=== PATIENT | female | born 1955 ===

== ENCOUNTER 2024-03-15 15:30 | Inpatient (IN) | payer MEDICARE ==
[~2024-03-15] VITALS: Ht 162.6 cm; Wt 99.5 kg
[~2024-03-15 15:30] MED LIST: AMOXICILLIN 8751 TAB PO; ATACAND32 MG PO; FLAGYL500 MG PO; NYSTATIN POWDER15 GM TOP; ROXICODONE 55 MG/TAB PO
[2024-03-15] MEDS ORDERED: metroNIDAZOLE 100 ML IV SCH (16:45)
[2024-03-15] MEDS ORDERED: Ondansetron 4 MG/2 ML VIAL IV PRN (16:45)
[2024-03-15] MEDS ORDERED: LR 1,000 ML IV SCH (16:45)
[2024-03-15] MEDS ORDERED: HYDROmorphone 0.5 MG/0.5 ML SYRINGE IV PRN (16:45)
[2024-03-15] MEDS ORDERED: oxyCODONE/Acetaminophen 5-325 MG TAB PO PRN (16:45)
[2024-03-15] MEDS ORDERED: NS 1,000 ML IV ONE (17:00)
--- NOTE | 2024-03-15 17:15 | NUR ---
Pt. arrived to the floor. Pt. is A&OX3, assessment complete. INT to Rt. ac patent. Pt. denies pain at this time. Call light within reach.
[2024-03-15 17:36] VITALS: BP 136/87; PULSE 107; TEMP 98.2
[2024-03-15 19:45] VITALS: BP 115/80; PULSE 93; TEMP 99
[2024-03-15 19:53] VITALS: BP_SYST 115
[2024-03-15 23:02] VITALS: BP 129/85; PULSE 91; TEMP 98.1
[2024-03-15 23:41] VITALS: BP_SYST 129
--- NOTE | 2024-03-15 23:47 | NUR ---
patient lying in bed, alert and oriented x4. horacio chest pain and shortness of breath. reports cramping pain in abd, med given per request. IV in RAC is patent, site is CDI. generalized bruising on extremities noted. pt has no further needs, questions or concerns at this time. ambulating with steady gait. call light within reach. will continue to monitor.
[2024-03-16] VITALS (11 sets, daily range): BP systolic 120–140; BP diastolic 75–82; PULSE 77–89; TEMP 97.6–98.2
--- NOTE | 2024-03-16 09:09 | NUR ---
SW reviewed chart for patient that is a 30 day readmission. SW met with patient to complete initial assessment for discharge planning. Patient verified that she lives in [place] with her /DPOA Anup ([phone]). She sees Dr. Alicia as her PCP and uses [facility]. Patient denies using any DME. She does not have any HH or other home services and does not anticipate the need for such at discharge. Plan is for patient to return home. Discharge plan: Home
--- NOTE | 2024-03-16 09:58 | NUR ---
D: Systems Librarian stopped by room on rounds. A: Pt was resting and content. Pt has no needs right now. P: Systems Librarian informed pt that if she needed anything to let her nurse know. Systems Librarian will follow up as needed.
--- NOTE | 2024-03-16 11:08 | NUR ---
SHIFT ASSESSMENT COMPLETE. VSS. PATIENT RESTING IN BED. ALL MORNING MEDS GIVEN ORDERED. PATIENT COMPLIANS OF DULL CONSTANT PAIN TO RIGHT LOWER ABD. PAIN MEDS GIVEN ORDERED. PATIENT HAS NO OTHER COMPLAINTS OR REQUEST AT THI TIME. CALL LIGHT IN REACH
[2024-03-16] MEDS ORDERED: hydrALAZINE 20 MG/ML 1 ML VIAL IV PRN (15:45)
[2024-03-16] MEDS ORDERED: Bisacodyl 5 MG TAB PO SCH (17:00)
[2024-03-16] MEDS ORDERED: Polyethylene Glycol 3350 119 GM BOTTLE PO SCH (17:00)
--- NOTE | 2024-03-16 19:38 | NUR ---
SHIFT ASSESSMENT COMPLETED AT THIS TIME. PT A&OX4. PT REPORTS NO PAIN BUT DISCOMFORT AND FEELINGS OF BLOATING IN THE ABDOMEN. PT DENIES NAUSEA AND SOB. PT REPORTS HAVING A FEW SMALL BOWEL MOVEMENTS TODAY BUT NOTHING SIGNIFICANT. NO SCHEDULED EVENING MEDICATIONS ORDERED TO ADMMINISTER AT THIS TIME. CALL LIGHT WITHIN REACH. NO FURTHER NEEDS AT THIS TIME.
[2024-03-17] VITALS (18 sets, daily range): BP systolic 118–154; BP diastolic 62–84; PULSE 76–88; TEMP 98–98.7
[2024-03-17] MEDS ORDERED: LR 1,000 ML IV SCH ×3 (05:00→17:30)
[2024-03-17 06:43] LABS: ALBUMIN 2.2 g/dL (3.4-4.8); BILIRUBIN,TOTAL 0.4 mg/dL (0.2-1.2); CALCIUM 8.8 mg/dL (8.4-10.2); CREATININE, serum 0.61 mg/dL (0.57-1.11); POTASSIUM 3.8 mEq/L (3.5-4.5)
--- NOTE | 2024-03-17 07:35 | NUR ---
PT ALERT AND RESTING IN BED. HEAD TO TOE ASSESSMENT COMPLETE. PT REQUESTED PRN PERCOCET. GIVEN WITHIN SIPS OF WATER. STATED PAIN IS 3/10 IN HER ABDOMEN AND DESCRIBED IT "MILD PAIN." PT INDEPENDENT IN ROOM. CALL LIGHT WITHIN REACH. NO FURTHER NEEDS.
[2024-03-17 08:02] LABS: BASO % 0.4 % (0.0-2.0); EOS # 0.2 K/mm3 (0.0-0.7); EOS % 1.8 % (0.0-4.0); GRAN % 70.3 % (42.2-75.2); HEMOGLOBIN 10.4 g/dl (12.5-16.0); LYMPH # 1.4 K/mm3 (1.2-3.4); LYMPH % 14.4 % (20.0-51.0); MEAN CELL VOLUME 77 fl (80.0-100.0); MEAN CORPUSCULAR HEMOGLOBIN 25 pg (27-31); MEAN CORPUSCULAR HGB CONC 33 g/dl (33.0-37.0); MEAN PLATELET VOLUME 9.5 fl (7.4-10.4); MONO # 1.3 K/mm3 (0.1-0.6); MONO % 12.8 % (1.7-9.3); PLATELET COUNT 404 K/mm3 (130-400); RED BLOOD COUNT 4.13 M/mm3 (4.10-5.30); REDCELL DISTRIBUTION WIDTH-CV 14.2 % (11.5-14.5)
[2024-03-17 08:03] LABS: HEMATOCRIT 31.7 % (37.0-47.0)
[2024-03-17] MEDS ORDERED: NS 10 ML IV ONE (13:58)
[2024-03-17] MEDS ORDERED: Lidocaine PF 2% (20 MG/ML) 5 ML VIAL ONE ×2 (13:58→15:35)
[2024-03-17] MEDS ORDERED: dexAMETHasone 10 MG/ML VIAL ONE ×2 (14:00→16:16)
[2024-03-17] MEDS ORDERED: Midazolam 2 MG/2 ML VIAL ONE (14:02)
[2024-03-17] MEDS ORDERED: fentaNYL 50 MCG/ML 2 ML VIAL ONE (14:02)
[2024-03-17] MEDS ORDERED: Rocuronium 50 MG/5 ML Multi-Dose VIAL ONE (14:03)
--- NOTE | 2024-03-17 15:08 | NUR ---
pt off floor for procedure
[2024-03-17] MEDS ORDERED: Ondansetron 4 MG/2 ML VIAL ONE (16:16)
[2024-03-17] MEDS ORDERED: fentaNYL 50 MCG/ML 1 ML SYRINGE/VIAL [PACU/SDC ONLY] IV PRN (16:45)
[2024-03-17] MEDS ORDERED: Ondansetron 4 MG/2 ML VIAL IV PRN ×2 (16:45→17:30)
[2024-03-17] MEDS ORDERED: HYDROmorphone 1 MG/1 ML SYRINGE [PACU/SDC ONLY] IV PRN (16:45)
[2024-03-17] MEDS ORDERED: droPERidol 2.5 MG/ML 2 ML VIAL IV PRN (16:45)
[2024-03-17] MEDS ORDERED: Meperidine 50 MG/ML 1 ML VIAL IV PRN (16:45)
[2024-03-17] MEDS ORDERED: Morphine 2 MG/1 ML VIAL [PACU/SDC ONLY] IV PRN (16:45)
[2024-03-17] MEDS ORDERED: Neostigmine 1 MG/ML 10 ML Multi-Dose Vial ONE (16:54)
[2024-03-17] MEDS ORDERED: Glycopyrrolate 0.2 MG/ML 1 ML VIAL ONE (16:54)
[2024-03-17] MEDS ORDERED: Topical Skin Adhesive 1 EACH (1 ML) TOP ONE (17:00)
[2024-03-17] MEDS ORDERED: oxyCODONE 5 MG TAB PO PRN (17:30)
[2024-03-17] MEDS ORDERED: Naloxone 0.4 MG/ML VIAL IV PRN (17:30)
[2024-03-17] MEDS ORDERED: HYDROmorphone 0.5 MG/0.5 ML SYRINGE IV PRN (17:30)
[2024-03-17] MEDS ORDERED: Acetaminophen 500 MG TAB PO SCH (18:25)
--- NOTE | 2024-03-17 20:00 | NUR ---
Pt. resting in bed w/ family at bedside. Pt. appears mildly drowsy. She and her family inquiring about pt's procedure, diet, and plan of care. RN addressed questions. Pt. and family expressed understanding. Pt. requesting broth at this time. Shift assessment complete. Respirations are shallow, but even and unlabored. Abdominal incision sites are CDI. JONH drain to bulb suction w/ small amounts of bloody drainage. Bowel sounds audible in all quadrants. Indwelling catheter to dependent drainage and securement device in place- draining clear yellow urine. No further outstanding findings. Pt. denies pain at this time. Call light in reach.
[2024-03-17] MEDS ORDERED: Celecoxib 200 MG CAP PO SCH (21:00)
--- NOTE | 2024-03-17 21:30 | NUR ---
Scheduled meds administered per MAR. Pt. continues to deny pain.
--- NOTE | 2024-03-17 21:33 | NUR ---
Patient refused HS Celebrex-has not tolerated much PO since arriving from PACU. States she would like to start tomorrow AM when she eats more.
[2024-03-18] VITALS (13 sets, daily range): BP systolic 98–149; BP diastolic 63–85; PULSE 69–79; TEMP 98–98.3
--- NOTE | 2024-03-18 | NUR ---
Patient up to do oral care and attempt BM. Ambulated to bathroom with one assist. During trip IV to left AC was pulled out-cath intact. New IV started to right forearm-20g- by this nurse x1 attempt. C/O pain to right lower quadrant described as intermittent sharp pains. Has not tolerated much PO yet-dilaudid given per dr order. JONH drain with red output. Patient is worried that when she got up she "tore a stitch" and states she wont get up again. Education given on importance of ambulation to aid in recovery and gas pains. Verbalizes understanding. Call light in reach. Will monitor.
--- NOTE | 2024-03-18 | NUR ---
PCT reported pt's IV pump was beeping. Upon assessment, pt's IV has bloody appearing drainage around insertion site. Unable to flush IV. IV discontinued w/ catheter tip intact. RN inserted new IV to R forearm.
--- NOTE | 2024-03-18 03:30 | NUR ---
Pt. c/o pain rated 7/10. Pt. had difficulty rating and describing pain. She was very unsure whether she wanted her scheduled tylenol. Pt. did end up taking tylenol while also requesting something stronger. Administered PRN roxicodone per OCT. Will continue to monitor.
--- NOTE | 2024-03-18 04:29 | NUR ---
Patient tolerated clear liquids without N/V. Requesting diet to be advanced to fulls. Order placed. Will monitor.
--- NOTE | 2024-03-18 05:25 | NUR ---
Pt. reports pain is subsiding.
--- NOTE | 2024-03-18 05:26 | NUR ---
Pt currently resting in bed. Last night she struggled w/ pain management towards the latter half of the night. She has a new IV site to the R forearm. She seems a little anxious about ambulating since her last attempt. Pt. has been educated about the importance of early ambulation, pain management, and expected pain. Pt. tolerated clear liquid diet well and has been advanced to full liquids. Indwelling catheter still draining clear yellow urine. No requests or complaints at this time.
[2024-03-18 06:39] LABS: GRAN # 7.6 K/mm3 (1.4-6.5); GRAN % 89.6 % (42.2-75.2); HEMOGLOBIN 10.9 g/dl (12.5-16.0); LYMPH # 0.7 K/mm3 (1.2-3.4); LYMPH % 8.4 % (20.0-51.0); MEAN CELL VOLUME 77 fl (80.0-100.0); MEAN CORPUSCULAR HEMOGLOBIN 25 pg (27-31); MEAN CORPUSCULAR HGB CONC 32 g/dl (33.0-37.0); MEAN PLATELET VOLUME 9.6 fl (7.4-10.4); MONO # 0.1 K/mm3 (0.1-0.6); MONO % 1.5 % (1.7-9.3); PLATELET COUNT 405 K/mm3 (130-400); RED BLOOD COUNT 4.38 M/mm3 (4.10-5.30); REDCELL DISTRIBUTION WIDTH-CV 14.2 % (11.5-14.5)
[2024-03-18 06:47] LABS: HEMATOCRIT 33.9 % (37.0-47.0)
[2024-03-18 07:14] LABS: CALCIUM 9.1 mg/dL (8.4-10.2); CREATININE, serum 0.64 mg/dL (0.57-1.11); MAGNESIUM 1.7 mg/dL (1.6-2.6); PHOSPHOROUS 3.4 mg/dL (2.3-4.7); POTASSIUM 4.5 mEq/L (3.5-4.5)
--- NOTE | 2024-03-18 08:21 | NUR ---
PT RESTING IN BED UPON ENTERING ROOM. MEDS GIVEN PER ORDER. HEAD TO TOE ASSESSMENT COMPETE. 2 LAP SITES CLEAN AND EDGES WELL APPROXIMATED. JONH DRAIN OUTPUT SMALL AMOUNTS OF BLOOD. RATED PAIN 5/10 AND DESCRIBED IT "SHARP" LOCATED NEAR HER DRAIN SITE. PRN OXYCODONE GIVEN. DENIES FURTHER NEEDS. CALL LIGHT WITHIN REACH. NO FURTHER NEEDS.
[2024-03-18] MEDS ORDERED: CANDESARTAN 32 MG PO SCH (09:00)
[2024-03-18] MEDS ORDERED: SUBS TO LOSARTAN PO SCH (09:00)
[2024-03-18] MEDS ORDERED: Losartan 50 MG TAB PO SCH (09:00)
--- NOTE | 2024-03-18 09:30 | NUR ---
attempted to have pt sit on the side of bed for breakfast. pt reports increased pain with catheter and wanting to lay back in bed. pt denies wanting to have catheter removed. will attempt to have breakfast while in bed. no abdominal pain reported.
--- NOTE | 2024-03-18 13:02 | NUR ---
SW attended interdisciplinary rounding and was informed pt is on antibiotics and awaiting cultures to come back. Dr. Costa ordered PT for pt. Discharge Plan: home, PT pending
--- NOTE | 2024-03-18 14:22 | NUR ---
PT RATED PAIN 10/10 LOCATED IN HER ABDOMEN. GIVEN PRN OXYCODONE. REQUESTED THAT WE DO NOT REMOVE HER VALDES AT THIS TIME BECAUSE SHE DOES NOT THINK SHE WILL BE ABLE TO GET UP TO THE BATHROOM. WILL REASSESS IF PAIN MEDICATION HELPS. NO FURTHER NEEDS. CALL LIGHT WITHIN REACH.
--- NOTE | 2024-03-18 15:32 | NUR ---
PT STATED PAIN WAS TOLERABLE ENOUGH TO TAKE VALDES OUT. VALDES CATHETER REMOVED. 10 CC REMOVED FROM BALLOON. PT TOLERATED WELL. GOT UP TO GO TO THE BATHROOM. PT HAD SOME TROUBLE USING CORE MUSCLES AND HAD PAIN WITH MOVEMENT. GAIT SOMEWHAT UNSTEADY. CALL LIGHT WITHIN REACH. NO FURTHER NEEDS.
--- NOTE | 2024-03-18 21:00 | NUR ---
Pt. resting in bed upon entry. Pt. refused scheduled celebrex d/t concerns it might upset her stomach. Pt. denies pain at this time. Shift assessment complete. Bowel sounds are audible in all quadrants. Pt. endorses passing flatus and denies N/V. However, pt. states she has not had BM since her procedure. No other outstanding findings at this time. Pt. still expressing concerns about pain w/ ambulation. She is also reluctant to use incentive spirometer, as she fears it is causing more gas pain. Education provided regarding importance of ambulation and incentive spirometer use. Pt. expresses understanding.
--- NOTE | 2024-03-18 22:40 | NUR ---
Assisted pt. from restroom back to bed. Gait was steady but hesitant. Pt. c/o discomfort r/t acid reflux. Hospitalist, RONDA Caldera, notified. New orders received.
[2024-03-19] VITALS (11 sets, daily range): BP systolic 98–147; BP diastolic 69–87; PULSE 69–80; TEMP 97.4–98.5
--- NOTE | 2024-03-19 02:17 | NUR ---
Pt. c/o persisting discomfort r/t acid reflux. Hospitalist, RONDA Caldera, notified. New orders received.
[2024-03-19] MEDS ORDERED: Mag/Al Hydrox/Simeth Susp 30 ML CUP PO ONE (02:30)
--- NOTE | 2024-03-19 06:01 | NUR ---
Pt. struggled w/ feelings of discomfort through the night. She c/o abdominal pain and discomfort s/t acid reflux during the night. Pain managed w/ PRN Roxicodone, acid reflux managed w/ GI cocktail and protonix have been initiated. Pt. was ambulating to the restroom w/ x1 assist at the beginning of the shift but has advanced to stand by assist this morning. Pt. is voiding and passing flatus but still denies BM. Pt. is drinking some fluids, but IV fluids still infusing. Appetite is still poor. JONH drain to RLQ has had more output this evening than during the day or the previous night. Drain is to bulb suction draining moderate amounts of blood-tinged drainage. Pt. resting in bed w/ eyes closed at this time; respirations even and unlabored.
[2024-03-19 07:12] LABS: BASO % 0.3 % (0.0-2.0); EOS % 0.4 % (0.0-4.0); GRAN # 5.9 K/mm3 (1.4-6.5); HEMATOCRIT 38.7 % (37.0-47.0); HEMOGLOBIN 12.3 g/dl (12.5-16.0); LYMPH # 2.4 K/mm3 (1.2-3.4); LYMPH % 26.1 % (20.0-51.0); MEAN CELL VOLUME 78 fl (80.0-100.0); MEAN CORPUSCULAR HEMOGLOBIN 25 pg (27-31); MEAN CORPUSCULAR HGB CONC 32 g/dl (33.0-37.0); MEAN PLATELET VOLUME 10.3 fl (7.4-10.4); MONO # 0.8 K/mm3 (0.1-0.6); MONO % 8.5 % (1.7-9.3); RED BLOOD COUNT 4.96 M/mm3 (4.10-5.30); REDCELL DISTRIBUTION WIDTH-CV 14.6 % (11.5-14.5)
[2024-03-19 07:19] LABS: PLATELET COUNT 293 K/mm3 (130-400)
[2024-03-19 07:30] LABS: CALCIUM 8.9 mg/dL (8.4-10.2); CREATININE, serum 0.69 mg/dL (0.57-1.11); MAGNESIUM 1.7 mg/dL (1.6-2.6); POTASSIUM 3.5 mEq/L (3.5-4.5)
--- NOTE | 2024-03-19 08:00 | NUR ---
Pt doing okay this morning. She reports that her pain is tolerable, rating it 3/10 at this time. JONH drain to bulb suction. Pt reports that she is not very hungery at this time. No other needs
--- NOTE | 2024-03-19 09:20 | NUR ---
Pt continues to rest in bed. Discussed activity with her and encouraged her to sit up in the chair for meals and to try and take a short walk in between meals. PT did mention that her daughter would be here this morning to help her shower. Pt rating her pain 2/10 at this time. Dicussed her getting up and walking to the chair since her pain was tolerable. Pt was hesitant with this but did end up getting up. Call light within reach, pt is getting ready to order some breakfast
[2024-03-19] MEDS ORDERED: Magnesium Oxide 400 MG TAB PO SCH (10:01)
--- NOTE | 2024-03-19 11:40 | NUR ---
Pt has been up with therapy and did walk in the halls. Pts daughter here and did assist her with getting a shower. Drain covered to keep dry. Linens changed
--- NOTE | 2024-03-19 13:22 | NUR ---
JUAN met with patient and daughter to discuss discharge needs. Patient stating she worked well with PT this morning. Daughter stating patient could benefit from having a walker for discharge. DME order placed on front of chart for attending signature. Patient requested it be sent to [facility] [place]. Patient and daughter deny need for HH services at this time and open to discussing with PCP at follow up if they feel patient needs HH. Patient plans to return home with family assistance. Discharge plan: Home
--- NOTE | 2024-03-19 16:00 | NUR ---
Pt continues to progress. Pt has minimal complaints of pain but does not appear to have much energy/motivation. Continue to encourage pt to sit up in the chair for meals and to walk inbetween. Pts daughter has remained with her today.
--- NOTE | 2024-03-19 18:02 | NUR ---
Pt has done well today. Still slow at getting up/ambulating. Pain has been well controlled and not a big complaints today. Pts spouse present at bedside at this time. Pt has ordered her dinner. Call light within reach
--- NOTE | 2024-03-19 18:59 | NUR ---
[facility] WITH NO ACUTE DISTRESS NOTED. PATIENT ON ROOM AIR. FLAGYL INFUSING INTO LEFT AC WITH SOME IV PUMP BEEPING NOTED. JONH DRAIN INTACT AND DRAINING SMALL AMOUNT OF SEROSANGUINEOUS DRAINAGE NOTED. BEDSIDE SHIFT REPORT COMPLETED WITH BUCKY AT THIS TIME. PATIENT DENIES ANY NEEDS. BED IN LOW POSITION WITH WHEELS LOCKED WITH RAILS UP X3 AND CALL LIGHT WITHIN REACH.
--- NOTE | 2024-03-19 19:55 | NUR ---
PATIENT RESTING IN BED WITH TV ON WITH AT BEDSIDE WITH NO ACUTE DISTRESS NOTED. PATIENT ON ROOM AIR. IV PUMP BEEPING. FLAGYL RESTARTED. FLAGYL INFUSING WITH NO COMPLICATIONS NOTED. JONH DRAIN INTACT TO BULB SUCTION. ASSESSMENT COMPLETED AT THIS TIME. PATIENT TOLERATED WELL. PATIENT DENIES ANY NEEDS OTHER THAN THE IV PUMP TO STOP BEEPING. PILLOW PLACED UNDER LEFT ARM. BED IN LOW POSITION WITH WHEELS LOCKED WITH RAILS UP X3 AND CALL LIGHT WITHIN REACH.
--- NOTE | 2024-03-19 21:12 | NUR ---
PATIENT RESTING IN BED AFTER AMBULATING TO BATHROOM. PATIENT STATED "THAT WAS THE FIRST BOWEL MOVEMENT I HAVE HAD SINCE SURGERY." MEDICATION ADMINISTRATION COMPLETED AT THIS TIME. PATIENT TOLERATED WELL. PATIENT REQUESTED CUP OF ICE AND WATER WHICH WAS GIVEN. PATIENT DENIES ANY OTHER NEEDS. BED IN LOW POSITION WITH WHEELS LOCKED WITH RAILS UP X3 AND CALL LIGHT WITHIN REACH.
[2024-03-20] VITALS (12 sets, daily range): BP systolic 131–158; BP diastolic 75–95; PULSE 69–82; TEMP 97.8–98.4
[2024-03-20 06:34] LABS: BASO % 0.5 % (0.0-2.0); EOS # 0.3 K/mm3 (0.0-0.7); EOS % 3.6 % (0.0-4.0); GRAN # 4.8 K/mm3 (1.4-6.5); HEMOGLOBIN 10.9 g/dl (12.5-16.0); LYMPH # 1.9 K/mm3 (1.2-3.4); LYMPH % 24.6 % (20.0-51.0); MEAN CELL VOLUME 77 fl (80.0-100.0); MEAN CORPUSCULAR HEMOGLOBIN 25 pg (27-31); MEAN CORPUSCULAR HGB CONC 32 g/dl (33.0-37.0); MEAN PLATELET VOLUME 9.6 fl (7.4-10.4); MONO # 0.7 K/mm3 (0.1-0.6); MONO % 8.9 % (1.7-9.3); RED BLOOD COUNT 4.42 M/mm3 (4.10-5.30); REDCELL DISTRIBUTION WIDTH-CV 14.4 % (11.5-14.5)
[2024-03-20 06:46] LABS: HEMATOCRIT 34.2 % (37.0-47.0)
[2024-03-20 06:48] LABS: PLATELET COUNT 409 K/mm3 (130-400)
--- NOTE | 2024-03-20 09:27 | NUR ---
Therapy in working with pt at this time. Pt is up walking in the [place], using a walker.
[2024-03-20] MEDS ORDERED: Magnesium Sulfate 4% 50 ML IV ONE (10:45)
--- NOTE | 2024-03-20 12:30 | NUR ---
Pts IV infiltrated to her right forearm. Notified Dr Costa as pt has had several IVs in the last 24 hours. Ok to leave IV out, awaiting new orders.
[2024-03-20] MEDS ORDERED: Amoxicillin/Clavulanate K+ 875/125 MG TAB PO SCH (17:00)
--- NOTE | 2024-03-20 20:00 | NUR ---
PATIENT IS A&O, AT BEDSIDE. PATIENT DOES EXHIBIT HIGH ANXIETY TRAITS, AND WAS REPORTEDLY BY DAY SHIFT THAT PATIENT FREQUENTLY CRIES OR GETS EMOTIONAL. VSS. PATIENT REPORTS MILD ABD DISCOMFORT BUT STATES SHE WOULD LIKE PAIN MEDS CLOSER TO BEDTIME AND AFTER HER LEAVES. ABD IS ROUND AND WITH POSITIVE BOWL SOUNDS. NOTED SMALL AMOUNTS OF DRAINAGE AT JONH DRAIN SITE WITH MOD AMOUNTS OF SEROSANG OUTPUT. NO C/O N/V. NO IV SITE. HS MEDS GIVEN. ON PO ANTIBIOTICS. HEAD TO TOE ASSESSMENT COMPLETE. INDEPENDENT IN ROOM. CALL LIGHT IN REACH. SCD'S CURRENTLY OFF.
[2024-03-20] MEDS ORDERED: metroNIDAZOLE 250 MG TAB PO SCH (21:00)
[2024-03-21] VITALS (7 sets, daily range): BP systolic 132–147; BP diastolic 84–86; PULSE 74–77; TEMP 97.8–98.4
[2024-03-21 06:23] LABS: BASO % 0.2 % (0.0-2.0); EOS # 0.5 K/mm3 (0.0-0.7); EOS % 5.1 % (0.0-4.0); GRAN # 7.6 K/mm3 (1.4-6.5); GRAN % 73.1 % (42.2-75.2); HEMOGLOBIN 11.4 g/dl (12.5-16.0); LYMPH # 1.4 K/mm3 (1.2-3.4); LYMPH % 13.6 % (20.0-51.0); MEAN CELL VOLUME 77 fl (80.0-100.0); MEAN CORPUSCULAR HEMOGLOBIN 25 pg (27-31); MEAN CORPUSCULAR HGB CONC 33 g/dl (33.0-37.0); MEAN PLATELET VOLUME 9.3 fl (7.4-10.4); MONO # 0.8 K/mm3 (0.1-0.6); MONO % 7.6 % (1.7-9.3); PLATELET COUNT 384 K/mm3 (130-400); RED BLOOD COUNT 4.55 M/mm3 (4.10-5.30); REDCELL DISTRIBUTION WIDTH-CV 14.5 % (11.5-14.5)
[2024-03-21 06:52] LABS: CALCIUM 8.7 mg/dL (8.4-10.2); CREATININE, serum 0.63 mg/dL (0.57-1.11); MAGNESIUM 1.9 mg/dL (1.6-2.6); POTASSIUM 3.6 mEq/L (3.5-4.5)
[2024-03-21] MEDS ORDERED: MAG-OX 400400 MG/TAB PO (08:23)
--- NOTE | 2024-03-21 09:32 | NUR ---
SW notified by attending that patient is stable for discharge today. Attending discussed HH with patient. SW met with patient to present [email or web address] list of HH providers. Patient chose [facility] - referral faxed. JUAN faxed DME order for [facility] per patient's request to [facility]. Discharge plan: Home with HH
--- NOTE | 2024-03-21 09:47 | NUR ---
Patient up ambulating halls with therapy. She has been indepedent in her room this am. Up to sink for hygiene. She was in the bathroom and reports positive Bm. Tolerated breakfast, denies nausea. Rlq pain treated with tyelnol, not yet wanting to take anything stronger. JONH drain to compression. Will monitor
--- NOTE | 2024-03-21 13:54 | NUR ---
Patient ready for discharge home. All discharge education reviewed. Questions answered. Patient able to demonstrate [place] drain drainage. She is aware of the importance of recording output to take to follow up appt. Patient aware of follow up appt. scheduled. Medication list reviewed, importance of completing antibioitc coarse. Pain medication list reviewed. Cyber Forensics Analyst rounding to again reviewed low fiber diet. Patient to be wheeled out with all belongings
== END 2024-03-21 14:39 | disposition home health service (06) | DRG 345 ==
LOC: SURG 15:30
PROVIDERS: Internal Medicine; ADMIT Surgery
PROC: 0D9N40Z Drainage of Sigmoid Colon with Drainage Device, Percutaneous Endoscopic Approach (ICD-10-PCS; principal; 2024-03-17 16:15)
DX: K57.20 Diverticulitis of large intestine with perforation and abscess without bleeding (principal); M46.28 Osteomyelitis of vertebra, sacral and sacrococcygeal region; D72.829 Elevated white blood cell count, unspecified; I10 Essential (primary) hypertension; E78.5 Hyperlipidemia, unspecified; Z79.899 Other long term (current) drug therapy
CPT/HCPCS: A4314; A9284; J1100; J1170; J1650; J1836; J2250; J2405; J2543; J2704; J2710; J2795; J3010; J7030; J7120